=== PATIENT | female | born 1940 | race Caucasian/White ===

== ENCOUNTER 2018-12-16 19:16 | Emergency (ER) | payer BC, MEDICAID, MEDICARE, OTHER ==
[~2018-12-16] VITALS: Ht 162.6 cm; Wt 82.0 kg
[2018-12-16] MEDS ORDERED: ACETAMINOPHEN 500MG TABLET PO ONE (21:30)
[2018-12-16] MEDS ORDERED: BACITRACIN ZINC OINT UDPKT TOP ONE (23:45)
[2018-12-16 23:50] VITALS: BP 144/72
[2018-12-17] MEDS ORDERED: LIDOCAINE HCL/PF 1% 10 MG/ML 5ML VIAL IJ ONE (00:30)
[2018-12-17] MEDS ORDERED: BACITRACIN ZINC OINT UDPKT TOP ONE (00:30)
[2018-12-17] MEDS ORDERED: AMOXICILLIN/POTASSIUM CLAVULANATE 875/125MG TAB PO ONE (00:30)
== END 2018-12-17 01:30 | disposition home or self-care (01) ==
LOC: ER 19:16
DX: S02.2XXA Fracture of nasal bones, initial encounter for closed fracture (principal); S00.83XA Contusion of other part of head, initial encounter; S80.01XA Contusion of right knee, initial encounter; E11.9 Type 2 diabetes mellitus without complications; E78.00 Pure hypercholesterolemia, unspecified; I10 Essential (primary) hypertension; W01.0XXA Fall on same level from slipping, tripping and stumbling without subsequent striking against object, initial encounter; Y93.01 Activity, walking, marching and hiking; Y92.9 Unspecified place or not applicable
CPT/HCPCS: 70450; 70486; 99284; J3490